=== PATIENT | female | born 1990 | race Caucasian/White ===

== ENCOUNTER 2018-09-30 00:49 | Observation (INO) | payer BC, SELFPAY ==
[2018-09-30] VITALS (9 sets, daily range): BP systolic 87–122; BP diastolic 51–104; PULSE 53–98; RESP 16–20; TEMP 36.3–37.2; O2SAT 99–100
--- NOTE | 2018-09-30 01:04 | W.ED.GENAD ---
Discharge Plan Disposition Patient Disposition: [facility] INPATIENT Condition: Fair Discharge Details Chief Complaint: Abd Prob Clinical Impression: Vaginal bleeding affecting early , Pelvic pain Primary Care Provider: Nery,Local ED Provider: Victor Hugo Merchant Medical Decision Making 27-year-old female with report of positive home test presenting with acute onset of pelvic pain and syncope. She arrives here hypotensive. She has pale conjunctiva. She is not tachycardic but her history and presentation is highly suggestive of ruptured ectopic . OB, Dr. Sutton, called immediately. 2 IVs ordered with laboratory studies including beta quant sent. IV fluids and morphine given. Dr. Sutton arrived shortly after she was called. Able to establish one IV and fluids are going. Blood pressure has come up into the normal range. Urine test here is negative. Beta quant, however, is being diluted suggesting that will be positive. Dr. Sutton did not see free fluid on U/S. Beta quant came back at 8. Patient's vital signs have normalized. Dr. Sutton has decided not to go to the OR at this point. Patient will be admitted for repeat laboratory studies, repeat abdominal exam, hemodynamic monitoring. Lab Data Lab results reviewed: Yes I reviewed the patient's lab results. HPI General Mode of arrival: ambulatory. Date/Time Provider Initiated Documentation: 09/30/18 01:04. Limitations to Documentation: no limitations. Information obtained by: patient. HPI Narrative: Patient presents to ED with complaints of acute onset of left pelvic pain. Patient reports getting lightheaded and passing out in her bathroom. She denies any vaginal bleeding. She reports a positive home test with her last menstrual period being on August 30. She has a prior history of ectopic requiring surgery. She presents now for evaluation and is just started to have some spotting. Related Data Allergies Allergy/AdvReac Type Severity Reaction Status Date / Time No Known Allergies Allergy Unverified 09/30/18 00:59 General Stated Complaint: Abd Prob RAE: 3 Review of Systems Review of Systems Unobtainable due to (not obtained due to acuity of situation/condition.) ON LICENSE OF [facility] Surgical History (Updated 09/30/18 @ 02:14 by Alysa Sutton) History of laparoscopy (Chronic) S/P ectopic (Acute) History History 2 Para 0 Hx # Term Pregnancies 0 Multiple births Hx # Pregnancies 0 Ectopic pregnancies AB induced Hx Number of Living Children 0 AB spontaneous Exam Narrative Exam Narrative: Vitals: Afebrile with hypotension and bradycardia on arrival. Const: WDWN female in NAD. HEENT: NC/AT. Normal facial exam. Eyes: Conjuctiva pale. Neck: Supple. Trachea midline. Lungs: Normal respiratory effort. Lungs are clear. Cor: RRR without murmur/gallop. Good radial pulses. GI: Soft and non-distended. Tender in the lower abdomen but without guarding. : Pelvic deferred to OB. Neuro: A+O x 3. CN grossly in tact. Good strength and no focal deficit. Ext: No C/C/E. No deformity or tenderness. Skin: Warm and dry without rash. Course Vital Signs Temperature 97.3 F L 09/30/18 00:56 Pulse 53 L 09/30/18 00:56 Respiratory Rate 20 09/30/18 00:56 Blood Pressure 87/51 L 09/30/18 00:56 Pulse Oximetry 100 09/30/18 00:56 Temperature 97.3 F L 09/30/18 00:56 Temperature Source Temporal Artery Scan 09/30/18 00:56 Pulse 53 L 09/30/18 00:56 Respiratory Rate 20 09/30/18 00:56 Respiratory Effort Non-Labored 09/30/18 00:56 Blood Pressure 87/51 L 09/30/18 00:56 Blood Pressure Position Supine 09/30/18 00:56 Pulse Oximetry 100 09/30/18 00:56 Oxygen Delivery Method Room Air 09/30/18 00:56 Oxygen Flow Rate 0 09/30/18 00:56 Pain Level 10 09/30/18 00:56 Critical Care Time Critical Care Time: Yes Total Critical Care Time: 45 Attestation: Upon my evaluation, this patient had a high probability of imminent or life-threatening deterioration, which required my direct attention, intervention, and personal management. I have personally provided 45 minutes of critical care time exclusive of time spent on separately billable procedures. Time includes review of laboratory data, radiology results, discussion with consultants, and monitoring for potential decompensation. Interventions were performed as documented above.
[2018-09-30] MEDS: Lactated Ringers 1,000 ML 1000 ML IV (01:35)
[2018-09-30] MEDS: MORPHine 10 MG/ML VIAL 4 MG IVP (01:45)
[2018-09-30 01:58] LABS: Abs Immature Grans 0.01 k/cumm (0.0-0.09); Absolute Basophil Count 0.03 k/cumm (0.0-0.2); Absolute Eosinophil Count 0.07 k/cumm (0.0-0.7); Absolute Lymphocyte Count 4.13 k/cumm (1.2-3.4); Absolute Monocyte Count 0.48 k/cumm (0.11-0.7); Absolute Neutrophil Count 2.56 k/cumm (1.2-6.7); Basophils % 0.4; HCT 37.7 % (36.0-46.0); HGB 12.7 g/dL (12.0-15.5); Immature Grans % 0.1; Lymphocytes % 56.7; Mean Corp. HGB Concentration 33.7 g/dL (32.0-36.0); Mean Corpuscular Hemoglobin 30.5 pg (27.0-33.0); Mean Corpuscular Volume 90.4 fL (80-95); Mean Platelet Volume 10.4 fL (8.0-11.0); Monocytes % 6.6; Neutrophils % 35.2; Platelet Count 186 x1000/uL (130-400); RBC 4.17 m/cumm (4.00-5.20); RBC Distribution Width 12.8 % (11.7-14.6); White Blood Cell Count 7.28 k/cumm (4.4-10.8)
--- NOTE | 2018-09-30 02:08 | W.PM.HP.N ---
Date of service: 09/30/18 Time of Service: 02:08 Assessment and Plan (1) Vaginal bleeding affecting early : Current visit: Yes Status: Acute Awaiting quantitative hcg history and exam finding concerning for ectopic patient has experienced hypotension and syncope quantitative hcg 8 differential dx early , blighted ovum, ectopic patient now hemodynamically stable, hg 12's, plan admission observation serial beta quants pelvic us in AM History of Present Illness Chief Complaint: acute left pelvic pain Narrative: 27 yo prior ectopic with laparoscopy LMP 08/30/18 normal awoke this AM with acute LLQ pain syncopized in bathroom upon arrival to ER hypotensive, not tachycardic + vaginal bleeding + LLQ pain TV US empty uterus, No ff pelvis Review of Systems Review of Systems All systems reviewed & are unremarkable except as noted in HPI and below PFSH Surgical History (Updated 09/30/18 @ 02:14 by Alysa Sutton) History of laparoscopy (Chronic) S/P ectopic (Acute) Female Reproductive History Menstrual Duration of menses: 3-5 days History History 2 Para 0 Hx # Term Pregnancies 0 Multiple births Hx # Pregnancies 0 Ectopic pregnancies AB induced Hx Number of Living Children 0 AB spontaneous Meds Allergies Allergy/AdvReac Type Severity Reaction Status Date / Time No Known Allergies Allergy Unverified 09/30/18 00:59 Exam Narrative Exam Narrative: pale, uncomfortable Chest Chest: normal inspection of the chest Resp Effort & Inspection: normal respiratory effort Auscultation: clear to auscultation bilaterally Cardio Rate: regular rate Rhythm: regular rhythm Heart Sounds: S1 normal and S2 normal External Female Exam: external appearance normal Speculum Exam - Vagina: vaginal bleeding Bimanual Exam- Vagina & Uterus: other (+ uterine and LLQ pain with bimanual exam) OB/External & Speculum: vaginal bleeding Amniotic Fluid: other (TV US empty uterus No ff pelvis No adnexal mass) Results Labs : 09/30/18 01:25 09/30/18 01:25 Laboratory Results - last 24 hr 09/30/18 01:25 WBC 7.28 RBC 4.17 Hgb 12.7 Hct 37.7 MCV 90.4 MCH 30.5 MCHC 33.7 RDW 12.8 Plt Count 186 MPV 10.4 Immature Gran % 0.1 Neutrophils % 35.2 Lymphocytes % 56.7 Monocytes % 6.6 Eosinophils % 1.0 Basophils % 0.4 Absolute Neutrophils 2.56 Absolute Lymphocytes 4.13 H Absolute Monocytes 0.48 Absolute Eosinophils 0.07 Absolute Basophils 0.03 Last Vital Signs Temp 36.3 C L 09/30/18 00:56 Pulse 53 L 09/30/18 00:56 Resp 20 09/30/18 00:56 BP 87/51 L 09/30/18 00:56 Pulse Ox 100 09/30/18 00:56
[2018-09-30 02:16] LABS: Anion Gap 14.3 mmol/L (3-11); BUN 15 mg/dL (7-18); CO2 22.7 mmol/L (21.0-32.0); CREATININE 0.87 mg/dL (0.55-1.02); Calcium 8.7 mg/dL (8.5-10.1); Chloride 105 mmol/L (98-107); Glucose 120 mg/dL (70-100); HCG Quant, Pregnancy 8 mIU/mL (1-3); Potassium 3.5 mmol/L (3.5-5.1); Sodium 142 mmol/L (136-145)
[2018-09-30] MEDS: Lactated Ringers 1,000 ML 125 ML IV ×2 (02:40→10:10)
--- NOTE | 2018-09-30 07:01 | DI.US_ITS ---
SYMPTOM/DIAGNOSIS: VAGINAL BLEEDING, PELVIC PAIN, ? ECTOPIC PELVIC ULTRASOUND: Transabdominal and transvaginal examination was performed. The uterus measures 6.8 cm. long by 3.3 cm. AP by 4.6 cm. transverse. There is no evidence of an intrauterine gestational sac. No myometrial mass is present. The endometrial stripe is within normal limits in thickness. Both ovaries were visualized and are grossly unremarkable. There is normal blood flow. No evidence of torsion is seen. No solid ovarian mass is seen. No evidence of a pelvic adnexal mass or hydronephrosis. There is a small amount of free fluid in the cul-de-sac. This is likely physiologic. IMPRESSION: No evidence of a pelvic mass or intrauterine gestational sac. The findings were discussed with Alysa Sutton on the date of the examination.
--- NOTE | 2018-09-30 07:51 | W.PM.PROGNOT ---
Date of Service Date of service: 09/30/18 Time of Service: 07:51 Assessment and Plan (1) S/P ectopic : Current visit: No Status: Acute (2) Vaginal bleeding affecting early : Current visit: Yes Status: Acute continues with pain and bleeding going for TV US now awaiting CBC and quant abdomen is tender but not an acute abdomen and patient remains normotensive and regular rate differential dx blighted ovum vs ectopic favor blighted ovum but need additional info quant and us to differentiate Subjective Interval history since last seen: 27 yo LMP 08/30/18 still experiencing light bleeding pain 5/10 states worsening this am when Morphine wore off no nausea/vomiting Exam Narrative Exam Narrative: appears well 122/77 64 37.2 GI Other: abdomen soft tenderness to palpatiom lowere quadrants left>right no rebound no guarding Objective Objective Clinical Data: Abnormal lab results 09/30/18 09/30/18 Range/Units 01:25 01:25 Absolute Lymphocytes 4.13 H (1.2-3.4) k/cumm Anion Gap 14.3 H (3-11) mmol/L Glucose 120 H (70-100) mg/dL Beta HCG, Quant 8 H (1-3) mIU/mL Vital Signs Temperature 37 C 09/30/18 03:00 Temperature Source Oral 09/30/18 03:00 Pulse 74 09/30/18 03:53 Pulse Rhythm Regular 09/30/18 03:20 Respiratory Rate 18 09/30/18 03:53 Respiratory Effort Non-Labored 09/30/18 03:20 Respiratory Depth Normal 09/30/18 03:20 Respiratory Pattern Normal 09/30/18 03:20 Blood Pressure 121/78 09/30/18 03:53 Blood Pressure Position Supine 09/30/18 00:56 Pulse Oximetry 100 09/30/18 03:53 Oxygen Delivery Method Room Air 09/30/18 03:00 Oxygen Flow Rate 0 09/30/18 03:00 Pain Level 5 09/30/18 07:41 Intake & Output 09/29/18 09/29/18 09/30/18 11:59 23:59 11:59 Intake Total 1000 / 1000 Output Total 1100 / 1100 Balance -100 / -100 Weight 61.235 kg Intake: IV 1000 / 1000 Output: Urine 1100 / 1100 Other: Urine Color Yellow Urine Appearance Hematuria Laboratory Results WBC Cancelled 09/30/18 05:35 RBC Cancelled 09/30/18 05:35 Hgb Cancelled 09/30/18 05:35 Hct Cancelled 09/30/18 05:35 MCV Cancelled 09/30/18 05:35 MCH Cancelled 09/30/18 05:35 MCHC Cancelled 09/30/18 05:35 RDW Cancelled 09/30/18 05:35 Plt Count Cancelled 09/30/18 05:35 MPV Cancelled 09/30/18 05:35 Immature Gran % 0.1 09/30/18 01:25 35.2 09/30/18 01:25 56.7 09/30/18 01:25 6.6 09/30/18 01:25 1.0 09/30/18 01:25 0.4 09/30/18 01:25 Absolute Neutrophils 2.56 k/cumm (1.2-6.7) 09/30/18 01:25 Absolute Lymphocytes 4.13 k/cumm (1.2-3.4) H 09/30/18 01:25 Absolute Monocytes 0.48 k/cumm (0.11-0.7) 09/30/18 01:25 Absolute Eosinophils 0.07 k/cumm (0.0-0.7) 09/30/18 01:25 Absolute Basophils 0.03 k/cumm (0.0-0.2) 09/30/18 01:25 Sodium 142 mmol/L (136-145) 09/30/18 01:25 Potassium 3.5 mmol/L (3.5-5.1) 09/30/18 01:25 Chloride 105 mmol/L (98-107) 09/30/18 01:25 Carbon Dioxide 22.7 mmol/L (21.0-32.0) 09/30/18 01:25 14.3 mmol/L (3-11) H 09/30/18 01:25 BUN 15 mg/dL (7-18) 09/30/18 01:25 0.87 mg/dL (0.55-1.02) 09/30/18 01:25 >= 60.00 (mL/min/1.73m2) 09/30/18 01:25 Glucose 120 mg/dL (70-100) H 09/30/18 01:25 Calcium 8.7 mg/dL (8.5-10.1) 09/30/18 01:25 Beta HCG, Quant 8 mIU/mL (1-3) H 09/30/18 01:25 Patient ABO/Rh O Positive 09/30/18 01:25 Antibody Screen Negative 09/30/18 01:25
[2018-09-30 08:18] LABS: HCG Quant, Pregnancy 8 mIU/mL (1-3)
[2018-09-30 08:30] LABS: HCT 39.4 % (36.0-46.0); HGB 13.3 g/dL (12.0-15.5); Mean Corp. HGB Concentration 33.8 g/dL (32.0-36.0); Mean Corpuscular Hemoglobin 30.3 pg (27.0-33.0); Mean Corpuscular Volume 89.7 fL (80-95); Mean Platelet Volume 10.7 fL (8.0-11.0); Platelet Count 193 x1000/uL (130-400); RBC 4.39 m/cumm (4.00-5.20); RBC Distribution Width 12.8 % (11.7-14.6); White Blood Cell Count 9.07 k/cumm (4.4-10.8)
--- NOTE | 2018-09-30 11:40 | W.PM.DS.N ---
Date of service: 09/30/18 Time of Service: 11:40 DS: Diagnosis Discharge Diagnosis (1) S/P ectopic : Status: Acute (2) Vaginal bleeding affecting early : Status: Acute Discharge Plan Disposition Patient Disposition: HOME Condition: Improving Discharge Details Chief Complaint: Abd Prob Clinical Impression: Vaginal bleeding affecting early , Pelvic pain Reason For Visit: FIRST TRIMESTER VAGINAL BLEEDING Admit Date/Time: 09/30/18 02:34 Admit Provider: Alysa Sutton Attending Provider: Alysa Sutton Primary Care Provider: Unknown,[place] ED Provider: Victor Hugo Merchant [facility] Course Hospital Course: admitted from ER for r/o ectopic HCG 8, RAds US empty uterus, No FF, no ectopic pain improved overnight, continued with vaginal bleeding AM quant 8 Discharge home with instructions repeat HCG Sun AM Dr. Pryor to follow Instructions reviewed to return to ER with fainting, heavy bleeding, or increased pain Home Meds and New Rx's Prescriptions: New oxycodone-acetaminophen 5-325 mg Tablet 1 tab PO Q4H PRN Qty: 10 RF: 0 No Action oxycodone-acetaminophen 5-325 mg tablet 1 tab PO ONCE MDD 4 PRN (Reason: pain) Qty: 10 RF: 0 Discharge Instructions Referrals: Alysa Sutton [ [facility] STAFF PHYSICIAN] - (2 weeks Call on Wednesday to review HCG( hormone level) with Dr. Pryor) Activity:: No lifting, no exercise Equipment/Supplies:: No Equipment Needed Diet:: As Tolerated Discharge Orders Discharge Orders: Discharge Order (Routine); Ordered 09/30/18 Ordered By: Alysa Sutton Exam Narrative Exam Narrative: emotional, crying GI Inspection: normal to inspection Palpation: soft Percussion: other Other: soft moderate tenderness lower pelvis no rebound or guarding Other: vaginal bleeding os closed US empty uterus, no adnexal mass DS: Data Vitals/I&O Vitals and I&O: Vital Signs Temperature 37.2 C 09/30/18 07:19 Temperature Source Oral 09/30/18 07:19 Pulse 64 09/30/18 07:19 Pulse Rhythm Regular 09/30/18 03:20 Respiratory Rate 16 09/30/18 07:19 Respiratory Effort Non-Labored 09/30/18 03:20 Respiratory Depth Normal 09/30/18 03:20 Respiratory Pattern Normal 09/30/18 03:20 Blood Pressure 122/77 09/30/18 07:19 Blood Pressure Position Supine 09/30/18 00:56 Pulse Oximetry 100 09/30/18 03:53 Oxygen Delivery Method Room Air 09/30/18 07:19 Oxygen Flow Rate 0 09/30/18 07:19 Pain Level 5 09/30/18 07:41 Intake & Output 09/29/18 09/29/18 09/30/18 11:59 23:59 11:59 Intake Total 1937.5 / 1937.5 Output Total 1100 / 1100 Balance 837.5 / 837.5 Weight 61.235 kg Intake: IV 1937.5 / 1937.5 Output: Urine 1100 / 1100 Other: Urine Color Yellow Urine Appearance Hematuria Labs on day of discharge: Labs from last 24 hours 09/30/18 09/30/18 09/30/18 08:01 07:25 07:25 WBC Cancelled 9.07 RBC Cancelled 4.39 Hgb Cancelled 13.3 Hct Cancelled 39.4 MCV Cancelled 89.7 MCH Cancelled 30.3 MCHC Cancelled 33.8 RDW Cancelled 12.8 Plt Count Cancelled 193 MPV Cancelled 10.7 Immature Gran % Neutrophils % Lymphocytes % Monocytes % Eosinophils % Basophils % Absolute Neutrophils Absolute Lymphocytes Absolute Monocytes Absolute Eosinophils Absolute Basophils Sodium Potassium Chloride Carbon Dioxide Anion Gap BUN Creatinine Estimated GFR/1.73 m2 Glucose Calcium Beta HCG, Quant 8 H Patient ABO/Rh Antibody Screen 09/30/18 09/30/18 09/30/18 05:35 01:25 01:25 WBC Cancelled 7.28 RBC Cancelled 4.17 Hgb Cancelled 12.7 Hct Cancelled 37.7 MCV Cancelled 90.4 MCH Cancelled 30.5 MCHC Cancelled 33.7 RDW Cancelled 12.8 Plt Count Cancelled 186 MPV Cancelled 10.4 Immature Gran % 0.1 Neutrophils % 35.2 Lymphocytes % 56.7 Monocytes % 6.6 Eosinophils % 1.0 Basophils % 0.4 Absolute Neutrophils 2.56 Absolute Lymphocytes 4.13 H Absolute Monocytes 0.48 Absolute Eosinophils 0.07 Absolute Basophils 0.03 Sodium Potassium Chloride Carbon Dioxide Anion Gap BUN Creatinine Estimated GFR/1.73 m2 Glucose Calcium Beta HCG, Quant Patient ABO/Rh O Positive Antibody Screen Negative 09/30/18 01:25 WBC RBC Hgb Hct MCV MCH MCHC RDW Plt Count MPV Immature Gran % Neutrophils % Lymphocytes % Monocytes % Eosinophils % Basophils % Absolute Neutrophils Absolute Lymphocytes Absolute Monocytes Absolute Eosinophils Absolute Basophils Sodium 142 Potassium 3.5 Chloride 105 Carbon Dioxide 22.7 Anion Gap 14.3 H BUN 15 Creatinine 0.87 Estimated GFR/1.73 m2 >= 60.00 Glucose 120 H Calcium 8.7 Beta HCG, Quant 8 H Patient ABO/Rh Antibody Screen PFS Surgical History History of laparoscopy (Chronic) S/P ectopic (Acute) Female Reproductive History Menstrual Duration of menses: 3-5 days History History 2 Para 0 Hx # Term Pregnancies 0 Multiple births Hx # Pregnancies 0 Ectopic pregnancies AB induced Hx Number of Living Children 0 AB spontaneous
--- NOTE | 2018-09-30 12:31 | DSE_ITS ---
Date of service: 09/30/18 Time of Service: 12:31 DS: Diagnosis Discharge Diagnosis (1) S/P ectopic : Status: Acute (2) Vaginal bleeding affecting early : Status: Acute Discharge Plan Disposition Patient Disposition: HOME Condition: Improving Discharge Details Chief Complaint: Abd Prob Clinical Impression: Vaginal bleeding affecting early , Pelvic pain Reason For Visit: FIRST TRIMESTER VAGINAL BLEEDING Admit Date/Time: 09/30/18 02:34 Admit Provider: Alysa Sutton Attending Provider: Alysa Sutton Primary Care Provider: Unknown,[place] ED Provider: Victor Hugo Merchant [facility] Course Hospital Course: admitted from ER for r/o ectopic HCG 8, RAds US empty uterus, No FF, no ectopic pain improved overnight, continued with vaginal bleeding AM quant 8 Discharge home with instructions repeat HCG Sun AM Dr. Pryor to follow Instructions reviewed to return to ER with fainting, heavy bleeding, or increased pain Home Meds and New Rx's Prescriptions: New oxycodone-acetaminophen 5-325 mg Tablet 1 tab PO Q4H PRN Qty: 10 RF: 0 No Action oxycodone-acetaminophen 5-325 mg tablet 1 tab PO ONCE MDD 4 PRN (Reason: pain) Qty: 10 RF: 0 Discharge Instructions Referrals: Alysa Sutton [ [facility] STAFF PHYSICIAN] - (2 weeks Call on Wednesday to review HCG( hormone level) with Dr. Pryor) Activity:: No lifting, no exercise Equipment/Supplies:: No Equipment Needed Diet:: As Tolerated Discharge Orders Discharge Orders: Discharge Order (Routine); Ordered 09/30/18 Ordered By: Alysa Sutton Exam Narrative Exam Narrative: comfortable, upset, crying GI Inspection: normal to inspection Palpation: soft Percussion: other Other: lower pelvic tenderness, no rebound or guarding Other: cervical os closed continued bleeding DS: Data Vitals/I&O Vitals and I&O: Vital Signs Temperature 37.2 C 09/30/18 07:19 Temperature Source Oral 09/30/18 07:19 Pulse 64 09/30/18 07:19 Pulse Rhythm Regular 09/30/18 03:20 Respiratory Rate 16 09/30/18 07:19 Respiratory Effort Non-Labored 09/30/18 03:20 Respiratory Depth Normal 09/30/18 03:20 Respiratory Pattern Normal 09/30/18 03:20 Blood Pressure 122/77 09/30/18 07:19 Blood Pressure Position Supine 09/30/18 00:56 Pulse Oximetry 100 09/30/18 03:53 Oxygen Delivery Method Room Air 09/30/18 07:19 Oxygen Flow Rate 0 09/30/18 07:19 Pain Level 5 09/30/18 07:41 Intake & Output 09/29/18 09/30/18 09/30/18 23:59 11:59 23:59 Intake Total 1937.5 / 1937.5 Output Total 1100 / 1100 Balance 837.5 / 837.5 Weight 61.235 kg Intake: IV 1937.5 / 1937.5 Output: Urine 1100 / 1100 Other: Urine Color Yellow Urine Appearance Hematuria Labs on day of discharge: Labs from last 24 hours 09/30/18 09/30/18 09/30/18 08:01 07:25 07:25 WBC Cancelled 9.07 RBC Cancelled 4.39 Hgb Cancelled 13.3 Hct Cancelled 39.4 MCV Cancelled 89.7 MCH Cancelled 30.3 MCHC Cancelled 33.8 RDW Cancelled 12.8 Plt Count Cancelled 193 MPV Cancelled 10.7 Immature Gran % Neutrophils % Lymphocytes % Monocytes % Eosinophils % Basophils % Absolute Neutrophils Absolute Lymphocytes Absolute Monocytes Absolute Eosinophils Absolute Basophils Sodium Potassium Chloride Carbon Dioxide Anion Gap BUN Creatinine Estimated GFR/1.73 m2 Glucose Calcium Beta HCG, Quant 8 H Patient ABO/Rh Antibody Screen 09/30/18 09/30/18 09/30/18 05:35 01:25 01:25 WBC Cancelled 7.28 RBC Cancelled 4.17 Hgb Cancelled 12.7 Hct Cancelled 37.7 MCV Cancelled 90.4 MCH Cancelled 30.5 MCHC Cancelled 33.7 RDW Cancelled 12.8 Plt Count Cancelled 186 MPV Cancelled 10.4 Immature Gran % 0.1 Neutrophils % 35.2 Lymphocytes % 56.7 Monocytes % 6.6 Eosinophils % 1.0 Basophils % 0.4 Absolute Neutrophils 2.56 Absolute Lymphocytes 4.13 H Absolute Monocytes 0.48 Absolute Eosinophils 0.07 Absolute Basophils 0.03 Sodium Potassium Chloride Carbon Dioxide Anion Gap BUN Creatinine Estimated GFR/1.73 m2 Glucose Calcium Beta HCG, Quant Patient ABO/Rh O Positive Antibody Screen Negative 09/30/18 01:25 WBC RBC Hgb Hct MCV MCH MCHC RDW Plt Count MPV Immature Gran % Neutrophils % Lymphocytes % Monocytes % Eosinophils % Basophils % Absolute Neutrophils Absolute Lymphocytes Absolute Monocytes Absolute Eosinophils Absolute Basophils Sodium 142 Potassium 3.5 Chloride 105 Carbon Dioxide 22.7 Anion Gap 14.3 H BUN 15 Creatinine 0.87 Estimated GFR/1.73 m2 >= 60.00 Glucose 120 H Calcium 8.7 Beta HCG, Quant 8 H Patient ABO/Rh Antibody Screen PFSH Surgical History History of laparoscopy (Chronic) S/P ectopic (Acute) Female Reproductive History Menstrual Duration of menses: 3-5 days History History 2 Para 0 Hx # Term Pregnancies 0 Multiple births Hx # Pregnancies 0 Ectopic pregnancies AB induced Hx Number of Living Children 0 AB spontaneous
== END 2018-09-30 12:30 | disposition home or self-care (01) ==
LOC: ER 02:32 → PDS 03:08 → ER 03:14 → OBS 03:16
PROVIDERS: Admitting Provider Obstetrics & Gynecology; Emergency Provider Emergency Medicine; Visit Provider Obstetrics & Gynecology
DX: O00.90 Unspecified ectopic pregnancy without intrauterine pregnancy (principal); O08.1 Delayed or excessive hemorrhage following ectopic and molar pregnancy
CPT/HCPCS: 36415; 80048; 81025; 85027; 86850; 86900; 86901; 96360; 96361; 96374; 99223; 99233; 99239; 99291; 76817; 84702; 85025; G0378; J2270

== ENCOUNTER 2018-10-02 09:15 | Outpatient (CLI) | payer BC, SELFPAY ==
[2018-10-02 10:27] LABS: HCG Quant, Pregnancy 4 mIU/mL (1-3)
== END 2018-10-02 09:35 ==
PROVIDERS: Visit Provider Obstetrics & Gynecology
DX: O20.8 Other hemorrhage in early pregnancy (principal)
CPT/HCPCS: 36415; 84702